=== PATIENT | female | born 1960 | race African-American/Black ===

== ENCOUNTER 2020-12-25 21:56 | Emergency (ER) | payer OTHER ==
[~2020-12-25] VITALS: Ht 152.4 cm; Wt 72.6 kg
[2020-12-26] MEDS ORDERED: LISINOPRIL10 MG PO (00:04)
[2020-12-26 00:17] LABS: ABSOLUTE NEUTROPHILS 4.1 thou/uL (1.4-8.2); BASOPHILS 0.6 % (0.0-2.0); EOSINOPHILS 1.8 % (0.0-3.0); HEMATOCRIT 36.4 % (37.0-47.0); HEMOGLOBIN 11.9 gm/dL (12.0-15.0); LYMPHOCYTES 40.5 % (24.0-44.0); MCH 27.2 pg (26.0-34.0); MCHC 32.6 g/dL (28.0-37.0); MCV 83.4 fL (80.0-100.0); MONOCYTES 7.4 % (1.0-8.0); PLATELET COUNT 242 thou/uL (150-400); POLYS 49.7 % (36.0-66.0); RBC 4.36 mil/uL (4.20-5.00); RDW 14.4 % (10.5-14.5); WBC 8.3 thou/uL (4.0-11.0)
[2020-12-26 00:23] LABS: CALCIUM 9.4 mg/dL (8.5-10.1); POTASSIUM 4.1 mmol/L (3.5-5.1)
[2020-12-26] MEDS ORDERED: NORVASC5 MG PO (00:26)
[2020-12-26] MEDS ORDERED: TIZANIDINE HCL4 M2 PO (00:26)
[2020-12-26] MEDS ORDERED: CARAFATE 11 GM/10 M1 PO (00:26)
[2020-12-26] MEDS ORDERED: METFORMIN HCL500 MG PO (00:26)
[2020-12-26] MEDS ORDERED: LANTUS SOL100 UNIT/1 SUBQ (00:27)
[2020-12-26] MEDS ORDERED: PROTONIX40 M2 PO (00:27)
[2020-12-26] MEDS ORDERED: NEURONTIN 300M300 M2 PO (00:27)
[2020-12-26] MEDS ORDERED: METOCLOPRAMIDE10 MG PO (00:27)
[2020-12-26 00:29] LABS: ALBUMIN 3.4 g/dL (3.4-5.0); TOTAL BILIRUBIN 0.4 mg/dL (0.2-1.0); TOTAL PROTEIN 7.9 g/dL (6.4-8.2)
[2020-12-26 01:07] LABS: URINE BILIRUBIN NEGATIVE (Negative); URINE BLOOD TRACE (Negative); URINE CLARITY CLEAR; URINE COLOR YELLOW; URINE GLUCOSE-RANDOM* TRACE (Negative); URINE KETONES NEGATIVE (Negative); URINE LEUKOCYTES-REFLEX NEGATIVE (Negative); URINE NITRITE-REFLEX NEGATIVE (Negative); URINE PROTEIN (DIPSTICK) 1+ (Negative); URINE SPECIFIC GRAVITY 1.015 (1.005-1.035); URINE UROBILINOGEN 0.2 E.U./dl (0.2-1.0)
[2020-12-26 01:27] LABS: SQUAMOUS 0-3 Few /LPF (0-3); URINE RBC 1-2 Rare /HPF (NONE SEEN); URINE WBC-REFLEX 0-5 Rare /HPF (0-5)
[2020-12-26 01:28] LABS: BACTERIA-REFLEX 1-9 Few /HPF (None Seen); CASTS None Seen /LPF (None Seen); CRYSTALS None Seen /LPF (None Seen); MUCUS 0-3 Light strn/LPF (None Seen)
[2020-12-26] MEDS ORDERED: ZOFRAN ODT4 MG PO (05:10)
[2020-12-26 06:00] VITALS: BP 159/57
== END 2020-12-26 06:00 | disposition home or self-care (01) ==
LOC: ER 21:56
PROVIDERS: Emergency Medicine
DX: R10.13 Epigastric pain (principal); J45.909 Unspecified asthma, uncomplicated; E11.9 Type 2 diabetes mellitus without complications; Z79.4 Long term (current) use of insulin; Z79.899 Other long term (current) drug therapy